=== PATIENT | female | born 1955 | race Caucasian/White ===

== ENCOUNTER 2022-09-21 14:17 | Emergency (ER) | payer OTHER ==
[~2022-09-21] VITALS: Ht 175.3 cm; Wt 81.6 kg
[2022-09-21] MEDS ORDERED: COZAAR25 MG PO (15:10)
[2022-09-21] MEDS ORDERED: ATORVASTATIN CA10 MG PO (15:11)
== END 2022-09-21 18:06 | disposition home or self-care (01) ==
LOC: ER 14:17
DX: S52.601A Unspecified fracture of lower end of right ulna, initial encounter for closed fracture (principal); V76 Bus occupant injured in collision with other nonmotor vehicle; Y93.9 Activity, unspecified; Y92.410 Unspecified street and highway as the place of occurrence of the external cause; S52.501A Unspecified fracture of the lower end of right radius, initial encounter for closed fracture; E78.00 Pure hypercholesterolemia, unspecified; I10 Essential (primary) hypertension